=== PATIENT | male | born 1975 | race Caucasian/White ===

== ENCOUNTER 2019-05-28 15:40 | Emergency (ER) | payer OTHER ==
[~2019-05-28] VITALS: Ht 177.8 cm; Wt 124.7 kg
--- NOTE | 2019-05-28 15:45 | NUR ---
patient RAND from 4 seasons c/o more weakness than usual on the left side, LX=791nd/DL in the field. on room air, breathing evenly andunlabored. Connected to the monitor and pulse ox. IVY picc line patent, dressing intact. Changed in to gown. Will continue to monitor accordingly.
[2019-05-28] MEDS ORDERED: IOHEXOL-350 100 ML VIAL IV ONE (16:08)
[2019-05-28] MEDS ORDERED: IV NS 0.9% 250 ML IV ONE (16:08)
[2019-05-28] MEDS ORDERED: CT SWABBABLE VALVE TRANS SET 1 EA INFUS.SET MC ONE (16:08)
--- NOTE | 2019-05-28 16:10 | NUR ---
CALLED TELE STROKE, NEUROLOGIST INGRID WILL BE PAGED
--- NOTE | 2019-05-28 16:11 | NUR ---
see stroke sheet.
[2019-05-28] MEDS ORDERED: CALC-494 PO (16:18)
[2019-05-28] MEDS ORDERED: AMLO10TA4 PO (16:18)
[2019-05-28] MEDS ORDERED: METH10TA2 PO (16:18)
[2019-05-28] MEDS ORDERED: PANT40TA2 PO (16:18)
[2019-05-28] MEDS ORDERED: WARF4TAB72 PO (16:18)
[2019-05-28] MEDS ORDERED: ATOR40TA PO (16:18)
[2019-05-28] MEDS ORDERED: ASPI-1169 PO (16:18)
[2019-05-28] MEDS ORDERED: METO25TA20 PO (16:18)
[2019-05-28] MEDS ORDERED: CLON0.3T PO (16:18)
[2019-05-28] MEDS ORDERED: GABA-534 PO (16:18)
[2019-05-28] MEDS ORDERED: SENN-168 PO (16:18)
[2019-05-28] MEDS ORDERED: ZOLP10TA6 PO (16:19)
[2019-05-28] MEDS ORDERED: ALPR0.25 PO (16:19)
[2019-05-28] MEDS ORDERED: MAGN400O6 PO (16:19)
[2019-05-28] MEDS ORDERED: NA P133E RC (16:19)
[2019-05-28] MEDS ORDERED: INSU100V27 SQ (16:19)
[2019-05-28] MEDS ORDERED: BISA10SU11 RC (16:19)
[2019-05-28] MEDS ORDERED: BLOO-668 IN (16:19)
[2019-05-28] MEDS ORDERED: ACET-868 PO (16:19)
[2019-05-28 16:20] LABS: BASOPHILS % (AUTO) 0.4 % (0.0-2.0); EOSINOPHILS % (AUTO) 2.5 % (0.0-6.0); HEMATOCRIT 32 % (39-51); HEMOGLOBIN 10.4 g/dL (13.5-17.5); LYMPHOCYTES # (AUTO) 2.2 /CMM (0.8-4.8); LYMPHOCYTES % (AUTO) 23.9 % (20.0-44.0); MEAN CORPUSCULAR HGB CONC 33 g/dl (31.0-36.0); MEAN CORPUSCULAR VOLUME 76 fL (80-96); MONOCYTES # (AUTO) 0.8 /CMM (0.1-1.30); MONOCYTES % (AUTO) 8.3 % (2.0-12.0); NEUTROPHILS % (AUTO) 64.9 % (43.0-81.0); PLATELET COUNT (AUTO) 253 /CMM (150-450); RED BLOOD CELL COUNT(AUTO) 4.21 MIL/uL (4.5-6.0); WHITE BLOOD COUNT (AUTO) 9.3 K/uL (4.3-11.0)
[2019-05-28 16:28] LABS: CALCIUM, SERUM 8.6 mg/dL (8.5-10.1); CARBON DIOXIDE 29 mmol/L (21-32); CHLORIDE 101 mmol/L (98-107); CREATININE 1.4 mg/dL (0.6-1.3); GLUCOSE 258 mg/dL (74-106); POTASSIUM 3.6 mmol/L (3.5-5.1); SODIUM SERUM 137 mmol/L (136-145); UREA NITROGEN, BLOOD 9 mg/dL (7-18)
[2019-05-28] MEDS ORDERED: PROCHLORPERAZINE EDISYLATE 10 MG/2 ML VIAL ONE (16:28)
[2019-05-28] MEDS ORDERED: diphenhydrAMINE HCL 50 MG/ML VIAL ONE (16:28)
[2019-05-28] MEDS ORDERED: PROCHLORPERAZINE EDISYLATE 10 MG/2 ML VIAL IVP ONE (16:30)
[2019-05-28] MEDS ORDERED: diphenhydrAMINE HCL 50 MG/ML VIAL IV ONE (16:30)
[2019-05-28 16:42] LABS: CHOLESTEROL 76 mg/dL (<200); HDL CHOLESTEROL 24 mg/dL (40-60); LDL 14 mg/dL (0-99); TRIGLYCERIDES 191 mg/dL (30-150)
[2019-05-28] MEDS ORDERED: INSU100I26 SQ (17:04)
[2019-05-28] MEDS ORDERED: VANC1VIA2 IV (17:04)
[2019-05-28] MEDS ORDERED: GLIM4TAB2 PO (17:04)
[2019-05-28] MEDS ORDERED: AMPI1VIA12 IV (17:04)
--- NOTE | 2019-05-28 17:28 | NUR ---
GAVE MOVE SHEET TO ADMITTING
--- NOTE | 2019-05-28 18:01 | NUR ---
[facility]
[2019-05-28] MEDS ORDERED: PIPERACILLIN /TAZOBACTAM 3.375 G VIAL IV ONE (19:29)
--- NOTE | 2019-05-28 19:30 | NUR ---
endorsed to next shift Mitra CELESTIN for allegra.
--- NOTE | 2019-05-28 19:55 | NUR ---
CHRISTA QUEEN [phone], STATES WILL CALL BACK WITH ROOM ASSIGNMENT FROM [facility]
--- NOTE | 2019-05-28 21:30 | NUR ---
CALLED [facility] CELESTIN MARCH, STATES WILL CALL [facility] FOR BED ASSIGNMENT
--- NOTE | 2019-05-28 22:34 | NUR ---
TRANSFER INFO: PT WILL GO TO [facility] ROOM [id number]-B, RN FOR REPORT [phone]
[2019-05-28] MEDS ORDERED: ACETAMINOPHEN ES 500 MG TABLET ONE (23:11)
--- NOTE | 2019-05-28 23:30 | NUR ---
[facility] ETA 0045 PER CM MAY
--- NOTE | 2019-05-28 23:53 | NUR ---
REPORT GIVEN TO WANDER PEPPER AT [facility].
[2019-05-29] MEDS ORDERED: PIPERACILLIN /TAZOBACTAM 3.375 G in IV D5W 50 ML IV ONE ×2
--- NOTE | 2019-05-29 | NUR ---
VERBAL ORDER FROM DR. DURAN TYLENOL 1GR PO X ONE GIVEN ORDERED, NO SWALLOWING DIFFICULTY NOTED.
[2019-05-29] MEDS ORDERED: ACETAMINOPHEN ES 500 MG TABLET PO ONE (01:00)
[2019-05-29 02:03] VITALS: BP 109/48
--- NOTE | 2019-05-29 02:05 | NUR ---
PT WAS PICKED UP AND TRANSFERRED TO [facility] UNDER ACLS PROTOCOL IN STAB LE CONDITION. VSS/ . REPORT GIVEN TO PARAMEDICS. CD OF CT SCAN INCLUDED IN THE PACKET
== END 2019-05-29 02:05 | disposition short-term general hospital (02) ==
LOC: ER 15:46
DX: I63.9 Cerebral infarction, unspecified (principal); R51 Headache; J18.9 Pneumonia, unspecified organism; I10 Essential (primary) hypertension; K21.9 Gastro-esophageal reflux disease without esophagitis; E78.5 Hyperlipidemia, unspecified; E11.42 Type 2 diabetes mellitus with diabetic polyneuropathy; Z88.8 Allergy status to other drugs, medicaments and biological substances; Z91.040 Latex allergy status; Z88.2 Allergy status to sulfonamides; Z91.018 Allergy to other foods; Z91.013 Allergy to seafood; Z79.4 Long term (current) use of insulin; Z79.82 Long term (current) use of aspirin; Z79.899 Other long term (current) drug therapy; Z79.01 Long term (current) use of anticoagulants
CPT/HCPCS: 36415; 70450; 71045; 80048; 80061; 82962; 83605; 83880; 84484; 85025; 85730; 86480; 87040; 93005; 96365; 96375; 99291; J0780; J1200; J2543; J7050; J7060; Q9967